=== PATIENT | female | born 1965 | race Caucasian/White ===

== ENCOUNTER 2016-07-20 00:15 | Inpatient (IN) | payer MEDICAID ==
[~2016-07-20 00:15] MED LIST: ADVAIR 1001 DISK W/D IH; ALBUTEROL SULF8.5 GM; ALPRAZOLAM0.5 MG PO; AMITRIPTYLINE150 MG; ATIVAN0.5 MG; ATIVAN1 MG; AVINZA60 MG PO; BENTYL20 MG PO; DILAUDID4 MG; DOC-Q-LACE100 MG; DURAGESIC1 PATC TOP; DURAGESIC1 PATCH; EFFEXOR XR37.5 MG; EFFEXOR37.5 MG; ELAVIL150 MG; ELAVIL50 MG; LANTUS100 U/ML; LANTUS100 UNITS/ SC; MELATONIN5 M1 PO; MIRAPEX0.25 MG; NOVOLOG100 U/M; OMEPRAZOLE20 MG PO; OXYCONTIN; OXYCONTIN40 MG; OXYCONTIN80 MG; OXYIR5 MG; PERCOCET; PHENERGAN; PHENERGAN25 M2 RC; PRILOSEC; PRILOSEC20 MG; REQUIP2 MG PO; SENNA8.6 M1 PO; SENOKOT8.6 MG; STOOL SOFTENER; TOPAMAX50 MG PO; VITAMIN D-50000 IU/C PO; VOSPIRE ER8 MG; XANAX0.5 MG; ZITHROMAX250MG Z-PAK PO; ZOFRAN ODT4 MG/UDTAB PO; ZOFRAN4 MG; ZOFRAN4 MG PO; ZOFRAN8 MG; [UNRECOGNIZED DRUG - OTHER]
[2016-07-20] MEDS ORDERED: PRINIVIL10 M1 PO (00:22)
[2016-07-20] MEDS ORDERED: WAL-ZYR10 M2 PO (00:22)
[2016-07-20] MEDS ORDERED: LYRICA100 MG/CAP PO (00:23)
[2016-07-20] MEDS ORDERED: MS CONTIN15 M1 PO (00:23)
[2016-07-20] MEDS ORDERED: MS CONTIN30 M1 PO ×2 (00:23→11:57)
[2016-07-20] MEDS ORDERED: ASPIRIN81 M1 PO (00:23)
[2016-07-20] MEDS ORDERED: PRAVASTATIN SOD20 M1 PO (00:24)
[2016-07-20] MEDS ORDERED: LINZESS145 MC1 PO (00:24)
[2016-07-20 02:10] LABS: ALB/GLOB RATIO 0.8 (0.8-2.0); ALBUMIN 3.3 g/dl (3.5-5.0); ALCOHOL (ETOH) <10 mg/dl (<10); ALKALINE PHOSPHATASE 306 U/L (33-138); ALT/SGPT 47 U/L (12-78); ANION GAP 18 mmol/L (0-20); AST/SGOT 79 U/L (10-40); BILIRUBIN,TOTAL 0.4 mg/dl (0-1.5); BLOOD UREA NITROGEN 31 mg/dl (6-24); CALCIUM 8.3 mg/dl (8.5-10.5); CARBON DIOXIDE-VENOUS 18 mmol/L (22-32); CHLORIDE 110 mmol/l (96-110); CREATININE 1.92 mg/dl (0.50-1.10); GLUCOSE 374 mg/dL (70-110); MAGNESIUM 1.3 mg/dl (1.8-2.6); POTASSIUM 5.8 mmol/L (3.7-5.1); SODIUM 140 mmol/L (135-145); eGFR VALUE FOR BLACK 34 mL/Min
[2016-07-20 02:15] LABS: TSH-THYROID STIMULATING HORM. 0.66 uIU/ml (0.40-3.80)
[2016-07-20 02:25] LABS: BASO % 0.1 % (0-2); HCT-HEMATOCRIT 38.4 % (34.0-49.0); HGB-HEMOGLOBIN 13.4 gm/dl (12.0-15.5); IMMATURE GRANULOCYTES ABSOLUTE 0.02 tho/cmm (0-0.03); IMMATURE GRANULOCYTES PERCENT 0.2 % (0-0.3); LYMPH % 25.5 % (20-45); LYMPH ABSOLUTE COUNT 2.5 tho/cmm (0.8-4.5); MCH (MEAN CORPUSCULAR HGB) 30.1 pg (28.0-32.0); MCHC MEAN CORPUSCULAR HGB CONC 34.9 % (32.0-36.0); MCV (MEAN CELL VOLUME) 86.3 fl (82.0-96.0); MEAN PLATELET VOLUME 11.2 cmc (9.4-12.4); MONO % 6.7 % (0-12); MONOCYTE ABSOLUTE COUNT 0.7 tho/cmm (0.0-1.2); NEUTROPHIL ABSOLUTE COUNT 6.6 tho/cmm (1.6-8.0); NEUTROPHIL-AUTOMATED 6.6 tho/cmm (1.6-8.0); NEUTROPHILS % 67.5 % (40-80); PLATELET COUNT 167 tho/cmm (150-450); RED BLOOD COUNT 4.45 mil/cmm (4.00-5.20); RED CELL DISTRIBUTION WIDTH 14.1 % (12.4-16.4); WHITE BLOOD COUNT 9.8 tho/cmm (4.0-10.0)
[2016-07-20 03:02] LABS: URINE APPEARANCE CLEAR; URINE COLOR YELLOW; URINE LEUKOCYTE ESTERASE NEGATIVE (NEG)
[2016-07-20 03:03] LABS: URINE BILIRUBIN NEGATIVE (NEG); URINE BLOOD SMALL (NEG); URINE GLUCOSE (UA) MODERATE (NEG); URINE KETONE MODERATE (NEG); URINE NITRITE NEGATIVE (NEG); URINE PROTEIN NEGATIVE (NEG); URINE RBC 0 /[HPF] (0-5)
[2016-07-20 08:55] LABS: ABG CO2 ARTERIAL 15 mmol/L (21-27); ARTERIAL BLD GAS O2 SATURATION 94 % (95-98); ARTERIAL BLOOD GAS PCO2 30 mmHg (32-45); ARTERIAL PO2 88 mmHg (70-100); BICARBONATE 15 mmol/L (21-28); BLOOD GAS BASE EXCESS -10 mM/L (-/+3); PH 7.31 Units (7.35-7.45)
[2016-07-20 16:29] LABS: BLOOD UREA NITROGEN 26 mg/dl (6-24); CALCIUM 8.5 mg/dl (8.5-10.5); CARBON DIOXIDE-VENOUS 17 mmol/L (22-32); CHLORIDE 118 mmol/l (96-110); CREATININE 1.45 mg/dl (0.50-1.10); SODIUM 145 mmol/L (135-145); eGFR VALUE FOR BLACK 48 mL/Min
[2016-07-20 16:41] LABS: ANION GAP 15 mmol/L (0-20); GLUCOSE 159 mg/dL (70-110); POTASSIUM 4.5 mmol/L (3.7-5.1)
[2016-07-21 04:35] LABS: BASO % 0.2 % (0-2); EOS % 0.8 % (0-7); EOSINOPHIL ABSOLUTE COUNT 0.1 tho/cmm (0.0-0.7); HCT-HEMATOCRIT 32.5 % (34.0-49.0); HGB-HEMOGLOBIN 11.5 gm/dl (12.0-15.5); IMMATURE GRANULOCYTES ABSOLUTE 0.01 tho/cmm (0-0.03); IMMATURE GRANULOCYTES PERCENT 0.1 % (0-0.3); LYMPH ABSOLUTE COUNT 3.6 tho/cmm (0.8-4.5); MCH (MEAN CORPUSCULAR HGB) 29.6 pg (28.0-32.0); MCHC MEAN CORPUSCULAR HGB CONC 35.4 % (32.0-36.0); MCV (MEAN CELL VOLUME) 83.8 fl (82.0-96.0); MEAN PLATELET VOLUME 11.4 cmc (9.4-12.4); MONO % 6.3 % (0-12); MONOCYTE ABSOLUTE COUNT 0.5 tho/cmm (0.0-1.2); NEUTROPHIL ABSOLUTE COUNT 4.1 tho/cmm (1.6-8.0); NEUTROPHIL-AUTOMATED 4.1 tho/cmm (1.6-8.0); NEUTROPHILS % 49.6 % (40-80); PLATELET COUNT 158 tho/cmm (150-450); RED BLOOD COUNT 3.88 mil/cmm (4.00-5.20); RED CELL DISTRIBUTION WIDTH 13.6 % (12.4-16.4); WHITE BLOOD COUNT 8.3 tho/cmm (4.0-10.0)
[2016-07-21 04:48] LABS: ALB/GLOB RATIO 0.8 (0.8-2.0); ALBUMIN 2.8 g/dl (3.5-5.0); ALKALINE PHOSPHATASE 221 U/L (33-138); ALT/SGPT 36 U/L (12-78); ANION GAP 14 mmol/L (0-20); AST/SGOT 52 U/L (10-40); BILIRUBIN,DIRECT 0.2 mg/dl (0.0-0.3); BILIRUBIN,INDIRECT 0.2 mg/dL (0.0-1.0); BILIRUBIN,TOTAL 0.4 mg/dl (0-1.5); BLOOD UREA NITROGEN 21 mg/dl (6-24); CALCIUM 7.8 mg/dl (8.5-10.5); CARBON DIOXIDE-VENOUS 17 mmol/L (22-32); CHLORIDE 118 mmol/l (96-110); CREATININE 1.38 mg/dl (0.50-1.10); GLUCOSE 174 mg/dL (70-110); MAGNESIUM 1.7 mg/dl (1.8-2.6); PHOSPHOROUS 2.5 mg/dl (2.5-4.9); POTASSIUM 4.1 mmol/L (3.7-5.1); SODIUM 145 mmol/L (135-145); eGFR VALUE FOR BLACK 51 mL/Min
[2016-07-21 14:15] LABS: ANION GAP 18 mmol/L (0-20); BLOOD UREA NITROGEN 21 mg/dl (6-24); CALCIUM 7.8 mg/dl (8.5-10.5); CARBON DIOXIDE-VENOUS 18 mmol/L (22-32); CHLORIDE 116 mmol/l (96-110); CREATININE 1.61 mg/dl (0.50-1.10); GLUCOSE 177 mg/dL (70-110); MAGNESIUM 1.5 mg/dl (1.8-2.6); POTASSIUM 4.3 mmol/L (3.7-5.1); SODIUM 148 mmol/L (135-145); eGFR VALUE FOR BLACK 42 mL/Min
== END 2016-07-21 18:30 | DRG 438 ==
LOC: EDMED 00:15 → EMR2 08:38 → 5WE 09:50
PROVIDERS: Emergency Medicine; Family Medicine; ADMIT Family Medicine
PROC: 02HV33Z Insertion of Infusion Device into Superior Vena Cava, Percutaneous Approach (ICD-10-PCS; principal; 2016-07-20)
DX: K86.1 Other chronic pancreatitis (principal); E08.10 Diabetes mellitus due to underlying condition with ketoacidosis without coma; N17.9 Acute kidney failure, unspecified; E87.5 Hyperkalemia; E83.42 Hypomagnesemia; K70.30 Alcoholic cirrhosis of liver without ascites; Z91.81 History of falling; M54.5 Low back pain; G89.29 Other chronic pain; J44.9 Chronic obstructive pulmonary disease, unspecified; K74.60 Unspecified cirrhosis of liver; K21.9 Gastro-esophageal reflux disease without esophagitis; F41.9 Anxiety disorder, unspecified; E78.5 Hyperlipidemia, unspecified; I10 Essential (primary) hypertension; F17.210 Nicotine dependence, cigarettes, uncomplicated; Z88.1 Allergy status to other antibiotic agents; Z88.8 Allergy status to other drugs, medicaments and biological substances; Z91.14 Patient's other noncompliance with medication regimen
CPT/HCPCS: C1751; G0480; J1650; J1815; J3475; J7030